=== PATIENT | male | born 1970 | race Two or more races ===

== ENCOUNTER 2023-10-26 06:16 | Observation (INO) | payer SELFPAY ==
[2023-10-26] VITALS (13 sets, daily range): BP systolic 147–192; BP diastolic 90–130; PULSE 69–91; RESP 14–20; TEMP 36.6–37.7; O2SAT 97–100; BMI 30.4
--- NOTE | 2023-10-26 | ECG_ITS ---
Test Reason : sob Blood Pressure : / mmHG Vent. Rate : 072 BPM Atrial Rate : 072 BPM P-R Int : 168 ms QRS Dur : 112 ms QT Int : 442 ms P-R-T Axes : 063 -33 120 degrees QTc Int : 483 ms Normal sinus rhythm Left axis deviation Left ventricular hypertrophy with repolarization abnormality ( Sokolow-Santoyo , [place] product , Romhilt-Resendez ) Prolonged QT Abnormal ECG No previous ECGs available Referred By: Generic ED Physician Electronically Signed By:FAIZAN RODRIGUEZ
--- NOTE | ~2023-10-26 | XR_ITS ---
EXAMINATION: XR CHEST CLINICAL INFORMATION: Shortness of breath COMPARISON: None available. TECHNIQUE: 2 views of the chest were obtained. FINDINGS: Heart and mediastinum within normal limits. Scattered mild increased markings identified right mid/upper lung and hilar bases. No consolidations or effusions. No vascular congestion. Mild degenerative changes. XR/XR chest 2V IMPRESSION: Scattered increased markings, question atelectasis, pneumonia not excluded.
--- NOTE | 2023-10-26 06:43 | ED.GENADULT ---
HPI - General Adult General Chief complaint: General Medical Stated complaint: SoB Time Seen by Provider: 10/26/23 06:41 Source: patient Mode of arrival: ambulatory Limitations: no limitations History of Present Illness HPI narrative: Patient is a 53 year old assigned male at with no reported medical history presenting to the emergency department today with shortness of breath. Patient states that he was asleep when he woke up to feeling short of breath. Patient states that he felt as though he was gasping for air. Patient denies any dizziness, lightheadedness, abdominal pain, nausea, vomiting, fever, chills, blurry vision, double vision, loss of vision, chest pain, back pain, night sweats, pain with urination, increased urinary frequency, increased urinary urgency, blood in his urine or stool, syncope or a near syncopal episode, recent trauma or falls, bowel incontinence, bladder incontinence, bowel retention, bladder retention, or any other complaints at this time. Patient denies any recent drug use. Onset (ago): hour(s) Relieving factors: none Exacerbating factors: none Associated symptoms: shortness of breath Treatments prior to arrival: none Related Data Home Medications Medication Instructions Recorded Confirmed No Known Home Meds 10/26/23 10/26/23 Allergies Allergy/AdvReac Type Severity Reaction Status Date / Time No Known Allergies Allergy Unverified 08/05/20 19:27 [No Known Allergies*] Review of Systems Constitutional: Constitutional: Reports no additional constitutional complaints, Denies chills, Denies fever(s) and Denies night sweats Eyes: Eyes: Reports no additional eye complaints, Denies blurry vision, Denies change in vision, Denies diplopia, Denies eye discharge, Denies loss of vision and Denies eye pain ENT: Denies dizziness Cardiovascular: Cardiovascular: Reports no additional cardiovascular complaints, Denies chest pain, Denies lightheadedness, Denies Loss of Consciousness and Reports dyspnea Respiratory: Respiratory: Reports no additional respiratory complaints and Reports dyspnea Gastrointestinal: Gastrointestinal: Reports no additional gastrointestinal complaints, Denies abdominal pain, Denies melena, Denies hematochezia, Denies change in bowel habits and Denies change in stool character Genitourinary: Genitourinary: Reports no additional male genitourinary complaints, Denies hematuria, Denies oliguria, Denies difficulty urinating, Denies dysuria, Denies urinary frequency, Denies urinary hesitancy, Denies urinary incontinence and Denies urinary urgency Musculoskeletal: Musculoskeletal: Reports no additional musculoskeletal complaints, Denies numbness and Denies tingling Neurologic: Denies dizziness, Denies loss of vision, Denies numbness and Denies tingling Psychiatric: Psychiatric: Reports no additional psychiatric complaints Endocrine: Endocrine: Reports no additional endocrine complaints Hematologic/Lymphatic: Hematologic/Lymphatic: Reports no additional hematologic/lymphatic complaints Allergic/Immunologic: Allergic/Immunologic: Reports no additional allergic/immunologic complaints PMFSH Past Medical History Attestation statement: The following information was validated with the patient. Source: old records reviewed and nursing notes reviewed Medical History (Updated 10/26/23 @ 12:11 by JAMES Tavarez) No pertinent past medical history Surgical History (Updated 10/26/23 @ 10:18 by Jan Morales MD) No pertinent past surgical history Family History Family History (Updated 10/26/23 @ 11:40 by Paresh Reddy MD) Mother Kidney problem Emphysema lung Social History Social History (Updated 10/26/23 @ 10:19 by Jan Morales MD) Alcohol intake: never Patient Tobacco Use Status: Former Tobacco user Quit Date: Quit in the Substance Use Type: Marijuana Advance Directives: No Advance Directives Information Provided: Yes Physical Exam ED Vital Signs: Vital Signs - 24 hr 10/26/23 06:27 10/26/23 06:29 10/26/23 06:33 Temperature 98.0 F 98.0 F Pulse Rate 74 72 Respiratory Rate 15 14 Blood Pressure 182/119 H 182/119 H 184/130 H Pulse Oximetry 100 99 Oxygen Delivery Method Room Air Room Air 10/26/23 07:37 Temperature Pulse Rate 83 Respiratory Rate 19 Blood Pressure 184/114 H Pulse Oximetry 98 Oxygen Delivery Method BMI result Body Mass Index 30.4 Const General: cooperative, no acute distress, alert and awake Nutritional Appearance: well nourished Orientation/consciousness: patient oriented x3 Limitations: no limitations HENMT Head: Yes normal to inspection and Yes atraumatic Ears: hearing grossly normal bilaterally and external ears normal General nose exam: Normal external nose present, no nasal discharge noted and no epistaxis Face and sinus: Yes normal facial exam, No abrasion and No laceration Mouth: Normal oral and palatal mucosa present, no drooling and no muffled voice Eyes General: appearance normal, both eyes and all related structures Periorbital: periorbital findings normal Eyelids: Yes eyelids normal Conjunctivae: conjunctivae normal Pupils: Equal, round and reactive pupils present EOM: EOMs intact bilaterally Neck Neck: Yes normal visual inspection, Yes full ROM and Yes no lymphadenopathy Chest Chest palpation & inspection: normal inspection of the chest Resp Effort & Inspection: normal respiratory effort and able to speak in complete sentences Auscultation: clear to auscultation bilaterally Cardio Rate: regular rate Rhythm: regular rhythm GI Inspection: Yes normal to inspection Neuro General: patient oriented x3 and moves all extremities Cranial nerves: Yes Equal, round and reactive pupils present Cognition (Neuro): normal cognition Motor exam (neuro): 5/5 motor strength present throughout Sensory Exam: Normal double simultaneous stimulation for sensation Coordination: [id number] test normal Extrem General: Yes normal to inspection, Yes full ROM and Yes capillary refill normal Psych Appearance: grossly normal Mental Status: mental status grossly normal Affect: normal affect Attitude: cooperative Thought process: Normal thought process present Thought content: Normal thought content present Insight: Good insight present (Psych) Medications Administered Generic Name Dose Route Start Last Admin Trade Name Freq PRN Reason Stop Dose Admin Enoxaparin Sodium 40 mg 10/26/23 10:15 10/26/23 10:57 Enoxaparin Sodium 40 Mg/0.4 Ml Syringe SUBCUT 40 mg Q24H ARTIS Administration Discontinued Medications Generic Name Dose Route Start Last Admin Trade Name Freq PRN Reason Stop Dose Admin Amlodipine Besylate 10 mg 10/26/23 07:28 10/26/23 07:35 Amlodipine Besylate 10 Mg Tablet PO 10/26/23 07:29 10 mg ONCE ONE Administration Protocol Nitroglycerin 1 inch 10/26/23 10:20 10/26/23 10:49 Nitroglycerin 2 % Oint 1 Gm Packet TRANSDERMA 10/26/23 10:21 1 inch ONCE ONE Administration Medical Decision Making Medical Decision Making [facility] Narrative: Patient is a 53 year old assigned male at with no reported medical history presenting to the emergency department today with shortness of breath. Patient's physical exam showed a hypertensive individual but was otherwise unremarkable. Patient's blood work showed an initially elevated troponin of 195 with a repeat of 181 and a BNP of 179. Patient's urine showed no acute process. Patient's EKG showed evidence of ischemia. Patient's chest x-ray showed scattered increased markings question atelectasis vs. penumonia. Patient's clinical presentation is most consistent with hypertension with possible cardiac ischemia. Patient's clinical presentation is not consistent with sepsis (@0825). I spoke with the educational diagnostician flight control specialist who recommended giving 10mg of Amlodipine and admitting the patient. I spoke to the hospitalist team who agreed to admission. I explained my physical exam findings as well as all test results to the patient. I answered all questions asked by the patient. Patient verbalized agreement and understanding with this treatment plan and admission. Differential Diagnosis Differential Diagnoses: The differential diagnosis associated with the presentation includes NSTEMI STEMI Cardiomyopathy Hypertension Hypertensive urgency Hypertensive emergency Admission/Observation Consideration of admission/observation: Escalation of care including admission/observation considered Patient admitted. Consult Healthcare Provider Management of the patient was discussed with: Lead Java Developer Architect (spoke to the educational diagnostician as noted in the MDM Rationale portion of this note.) Lab Data [facility] Lab Attestation statement: I reviewed the patient's lab results. My interpretation of these results are in the MDM Rationale portion of this note. 10/26/23 06:48 10/26/23 06:48 Labs: Lab Results 10/26/23 10/26/23 10/26/23 Range/Units 06:48 07:12 07:50 WBC 8.6 (4.8-10.8) X10*3/uL RBC 5.67 (4.60-5.80) X10*6/uL Hgb 12.5 L (14.0-18.0) g/dl Hct 40.1 L (42.0-52.0) % MCV 70.7 L (80.0-98.0) fL MCH 22.0 L (27.0-33.0) pg MCHC 31.2 (31.0-36.0) g/dl RDW 16.5 H (11.0-16.0) % Plt Count 204 (160-400) X10*3/uL MPV 10.8 (9.4-12.4) fL Immature Gran % (Auto) 0.4 (0.0-0.4) % Neut % (Auto) 59.2 (45-73) % Lymph % (Auto) 27.9 (20-40) % [place] % (Auto) 7.4 (2-11) % Eos % (Auto) 4.4 H (0-4) % Baso % (Auto) 0.7 (0-2) % Lymph # (Auto) 2.4 (1.2-4.9) X10*3/uL [place] # (Auto) 0.6 (0.1-1.2) X10*3/uL Eos # (Auto) 0.4 (0.0-0.4) X10*3/uL Baso # (Auto) 0.1 (0.0-0.2) X10*3/uL Abs Immat Gran (auto) 0.03 (0.00-0.03) X10*3/uL Absolute Neuts (auto) 5.1 (2.0-8.3) x10*3/uL Absolute Nucleated RBC 0.000 (0.0-0.012) X10*3/uL Nucleated RBC % (auto) 0.0 (0.0-0.2) /100WBC PT 12.9 (11.1-13.3) SEC INR 1.1 (0.9-1.1) APTT 31.5 (26.0-36.4) SEC D-Dimer High Sensitivty 151 NG/ML Sodium 142 (135-145) mmol/L Potassium 3.7 (3.3-5.1) mmol/L Chloride 106 (96-108) mmol/L Carbon Dioxide 28 (22-29) mmol/L Anion Gap 12 (12-20) BUN 20 H (9-16) mg/dL Creatinine 0.89 (0.5-1.4) mg/dL Estim Creat Clear Calc 107.3 Estimated GFR > 60 Random Glucose 107 (60-115) mg/dL Calcium 8.9 (8.4-10.2) mg/dL Magnesium 2.0 (1.6-2.6) mg/dL Total Bilirubin 0.4 (0.0-1.0) mg/dL AST 27 (5-37) U/L ALT 24 (0-40) U/L Alkaline Phosphatase 81 (39-117) U/L Troponin I High Sens 195.0 H* 181.0 H* (<3.5-35.0) ng/L B-Natriuretic Peptide 179 H (<100) pg/mL Total Protein 7.5 (6.5-8.0) g/dL Albumin 4.1 (3.5-5.0) g/dL Urine Color Yellow Urine Appearance Clear Urine pH 7.5 (5.0-9.0) Ur Specific [employer] <= 1.005 (1.005-1.025) Urine Protein Negative (Neg-Trace) mg/dL Urine Glucose (UA) Negative (Negative) mg/dL Urine Ketones Negative (Negative) mg/dL Urine Blood Negative (Negative) Urine Nitrite Negative (Negative) Ur Leukocyte Esterase Negative (Negative) Urine Opiates Screen (Not Detect) Urine Fentanyl Screen (Not Detect) Ur Barbiturates Screen (Not Detect) Ur Phencyclidine Scrn (Not Detect) Ur Amphetamines Screen (Not Detect) U Benzodiazepines Scrn (Not Detect) Urine Cocaine Screen (Not Detect) U Marijuana (THC) Screen (Not Detect) Influenza Type A (PCR) NEGATIVE (Negative) Influenza Type B (PCR) NEGATIVE (Negative) RSV RNA Qual (PCR) NEGATIVE (Negative) SARS-CoV-2 RNA (RT-PCR) NEGATIVE (Negative) 10/26/23 Range/Units 07:52 WBC (4.8-10.8) X10*3/uL RBC (4.60-5.80) X10*6/uL Hgb (14.0-18.0) g/dl Hct (42.0-52.0) % MCV (80.0-98.0) fL MCH (27.0-33.0) pg MCHC (31.0-36.0) g/dl RDW (11.0-16.0) % Plt Count (160-400) X10*3/uL MPV (9.4-12.4) fL Immature Gran % (Auto) (0.0-0.4) % Neut % (Auto) (45-73) % Lymph % (Auto) (20-40) % [place] % (Auto) (2-11) % Eos % (Auto) (0-4) % Baso % (Auto) (0-2) % Lymph # (Auto) (1.2-4.9) X10*3/uL [place] # (Auto) (0.1-1.2) X10*3/uL Eos # (Auto) (0.0-0.4) X10*3/uL Baso # (Auto) (0.0-0.2) X10*3/uL Abs Immat Gran (auto) (0.00-0.03) X10*3/uL Absolute Neuts (auto) (2.0-8.3) x10*3/uL Absolute Nucleated RBC (0.0-0.012) X10*3/uL Nucleated RBC % (auto) (0.0-0.2) /100WBC PT (11.1-13.3) SEC INR (0.9-1.1) APTT (26.0-36.4) SEC D-Dimer High Sensitivty NG/ML Sodium (135-145) mmol/L Potassium (3.3-5.1) mmol/L Chloride (96-108) mmol/L Carbon Dioxide (22-29) mmol/L Anion Gap (12-20) BUN (9-16) mg/dL Creatinine (0.5-1.4) mg/dL Estim Creat Clear Calc Estimated GFR Random Glucose (60-115) mg/dL Calcium (8.4-10.2) mg/dL Magnesium (1.6-2.6) mg/dL Total Bilirubin (0.0-1.0) mg/dL AST (5-37) U/L ALT (0-40) U/L Alkaline Phosphatase (39-117) U/L Troponin I High Sens (<3.5-35.0) ng/L B-Natriuretic Peptide (<100) pg/mL Total Protein (6.5-8.0) g/dL Albumin (3.5-5.0) g/dL Urine Color Urine Appearance Urine pH (5.0-9.0) Ur Specific [employer] (1.005-1.025) Urine Protein (Neg-Trace) mg/dL Urine Glucose (UA) (Negative) mg/dL Urine Ketones (Negative) mg/dL Urine Blood (Negative) Urine Nitrite (Negative) Ur Leukocyte Esterase (Negative) Urine Opiates Screen Not Detected (Not Detect) Urine Fentanyl Screen Not Detected (Not Detect) Ur Barbiturates Screen Not Detected (Not Detect) Ur Phencyclidine Scrn Not Detected (Not Detect) Ur Amphetamines Screen Not Detected (Not Detect) U Benzodiazepines Scrn Not Detected (Not Detect) Urine Cocaine Screen Not Detected (Not Detect) U Marijuana (THC) Screen POSITIVE H (Not Detect) Influenza Type A (PCR) (Negative) Influenza Type B (PCR) (Negative) RSV RNA Qual (PCR) (Negative) SARS-CoV-2 RNA (RT-PCR) (Negative) Independent Interpretation I performed an independent interpretation of an: EKG and Plain X-Ray Interpretation: My interpretation is in agreement with the radiologist's impression of this imaging study. EXAMINATION: XR CHEST CLINICAL INFORMATION: Shortness of breath COMPARISON: None available. TECHNIQUE: 2 views of the chest were obtained. FINDINGS: Heart and mediastinum within normal limits. Scattered mild increased markings identified right mid/upper lung and hilar bases. No consolidations or effusions. No vascular congestion. Mild degenerative changes. XR/XR chest 2V IMPRESSION: Scattered increased markings, question atelectasis, pneumonia not excluded. Dictated By: Guillermina Cordova MD Signed By: Electronically signed by Guillermina Cordova MD 10/26/23 0750 Vent. Rate: 072 BPM Atrial Rate: 072 BPM P-R Int: 168 ms QRS Dur: 112 ms QT Int: 442 ms P-R-T Axes: 063 -33 120 degrees QTc Int: 483 ms Normal sinus rhythm Left axis deviation Left ventricular hypertrophy with repolarization abnormality ( Sokolow-Santoyo , [place] product , Romhilt-Resendez ) Prolonged QT Abnormal ECG No previous ECGs available DD/ 0700 Radiology Impression Discussion of test interpretation with radiology: I have reviewed the radiologist's reading. Critical Care Time Critical Care Time Critical Care Time: Yes Total Critical Care Time: 45 Attestation: I spent 45 minutes of Critical Care Time with this patient. This does not include time spent on separately reported billable procedures. Discharge Plan Discharge Clinical Impression: Hypertensive emergency, NSTEMI (non-ST elevated myocardial infarction) Patient Disposition: Admitted As Inpatient
[2023-10-26 06:55] LABS: MANUAL DIFF FLAG NO
[2023-10-26 06:56] LABS: Basophils Absolute Auto 0.1 X10*3/uL (0.0-0.2); Basophils Percent Auto 0.7 % (0-2); Eosinophils Absolute Auto 0.4 X10*3/uL (0.0-0.4); Eosinophils Percent Auto 4.4 % (0-4); Hematocrit 40.1 % (42.0-52.0); Hemoglobin 12.5 g/dl (14.0-18.0); Imm Gran Abs Auto 0.03 X10*3/uL (0.00-0.03); Imm Gran Pct Auto 0.4 % (0.0-0.4); Lymphocytes Absolute Auto 2.4 X10*3/uL (1.2-4.9); Lymphocytes Percent Auto 27.9 % (20-40); Mean Corpuscular HGB Conc 31.2 g/dl (31.0-36.0); Mean Corpuscular Volume 70.7 fL (80.0-98.0); Mean Platelet Volume 10.8 fL (9.4-12.4); Monocytes Absolute Auto 0.6 X10*3/uL (0.1-1.2); Monocytes Percent Auto 7.4 % (2-11); Neutrophils Absolute Auto 5.1 x10*3/uL (2.0-8.3); Neutrophils Percent Auto 59.2 % (45-73); Platelet Count 204 X10*3/uL (160-400); Red Blood Count 5.67 X10*6/uL (4.60-5.80); Red Cell Distribution Width 16.5 % (11.0-16.0); White Blood Count 8.6 X10*3/uL (4.8-10.8)
--- NOTE | 2023-10-26 07:00 | CA_ITS ---
Transthoracic Echocardiogram Patient (Last, First, Middle): Rj Clifford, Gender: Male Date of : 1970 Age: 53 Procedure Date: 10/26/2023 Procedure Type: Transthoracic Echocardiogram Location: ER Height: 172. cm Weight: 90.72 kg BSA: 2.04 m2 Heart Rate: 75 bpm BP: 160 / 100 mmHg Slitting And Shipping Supervisor: CAMILLE Referring MD: Jan Morales MD Symptoms: shortness of breath, uncontrolled HTN, LVH on EKG Study Quality: Good ECG Rhythm: Sinus Conclusions: - The left ventricular systolic function is moderately decreased. The visually estimated ejection fraction is between 35-40%. - Moderately increased right ventricular cavity size. - The left atrium is moderately dilated. - No obvious valvular pathology seen on this study. Findings Left Ventricle Moderately increased left ventricular cavity size. There is mildly increased left ventricular wall thickness. The left ventricular systolic function is moderately decreased. The visually estimated ejection fraction is between 35 40%. Evidence suggests grade I (mild) diastolic dysfunction. Right Ventricle Moderately increased right ventricular cavity size. There is normal right ventricular systolic function. Atria The left atrium is moderately dilated. The right atrium is mildly dilated. Aortic Valve There is a normal trileaflet aortic valve. There is no aortic valve stenosis. There is no aortic valve regurgitation. Mitral Valve The mitral valve appears normal. There is no mitral valve regurgitation. There is no mitral valve stenosis. Pulmonic Valve The pulmonic valve is likely normal. Tricuspid Valve Normal tricuspid valve structure. There is trace tricuspid valve regurgitation. There is no evidence of pulmonary hypertension. Great Vessels The asc aorta is normal in size. Venous The inferior vena cava is normal in size and collapses greater than 50% with inspiration. Pericardium/Pleural There is no evidence of pericardial effusion. Prior Study Comparison No prior study available for comparison. Recommendations, Care & Conclusions No obvious valvular pathology seen on this study. Measurements 2D Linear Measurements IVSd: 1.10 0.6-0.9/0.6-1.0 cm LVIDd: 6.36 3.9-5.3/4.2-5.9 cm LVIDd Index: 3.12 2.4-3.2/2.2-3.1 cm/m2 LVIDs: 4.89 2.0-3.6 cm LVPWd: 1.45 0.7-1.1 cm LA Diam: 4.00 2.7-3.8/3.0-4.0 cm LAIDs Index: 1.96 1.5-2.3 cm/m2 LV Mass: 468.09 67-162/88-224 g LV Mass Index: 229.46 43-95/49-115 g/m2 LVOT Diam: 2.00 3.0+(-)1.3 cm 2D Systolic Function EF 4C: 43.50 >55% EF 2C: 47.80 >55% EF BiP: 45.20 >55% Mitral Valve MV Pk E: 0.89 MV PK A: 0.72 MV Decel Time: 185.00 E/A: 1.20 E'Lateral: 6.74 E'Medial: 4.68 E/E' Med: 19.00 E/E' Lat: 13.20 PHT: 54.00 MVA PHT: 4.07 Decel [place]: 4.80 Aortic Valve AoV Pk Akhil: 1.54 AoV Mn Akhil: 1.16 AoV VTI: 0.32 AoV Pk Grad: 9.00 Aov Mn Grad: 6.00 YUKO Cont.VTI: 1.93 LVOT LVOT Pk Akhil: 1.01 LVOT Mn Akhil: 0.72 LVOT VTI: 0.19 LVOT Pk Grad: 4.00 LVOT Mn Grad: 2.00 LVOT Diam: 2.00 LVOT Area: 3.14 Diastolic Function MV Pk E: 0.89 MV Pk A: 0.72 E/A: 1.20 E'Medial: 4.68 E/E' Med: 19.00 E' Laterial: 6.74 E/E' Lat: 13.20 Right Ventricle TAPSE (mm): 27.70 TVS' Akhil: 13.20 Tricuspid Valve RA Press: 8.00 Great Vessels Aorta Sinus of Valsalva: 4.20 2.0-3.5 cm Ao Asc: 3.80 2.1-3.4 cm Pulmonary Valve PV Pk Akhil: 1.00 Peak PV Grad: 4.00 Updated in Other Vendor System with Status of Final Paresh Reddy MD electronically signed on 10/26/2023 3:22:08 PM with status of Final
[2023-10-26 07:04] LABS: INTERNATIONAL NORM RATIO 1.1 (0.9-1.1); Prothrombin Time 12.9 SEC (11.1-13.3)
[2023-10-26 07:07] LABS: Partial Thromboplastin Time 31.5 SEC (26.0-36.4)
[2023-10-26 07:09] LABS: Alanine Aminotransferase 24 U/L (0-40); Albumin Level 4.1 g/dL (3.5-5.0); Alkaline Phosphatase 81 U/L (39-117); Anion Gap 12 (12-20); Aspartate Amino Transferase 27 U/L (5-37); Bilirubin Total 0.4 mg/dL (0.0-1.0); Blood Urea Nitrogen 20 mg/dL (9-16); Calcium 8.9 mg/dL (8.4-10.2); Carbon Dioxide 28 mmol/L (22-29); Chloride 106 mmol/L (96-108); Creatinine Clr Calc Pharmacy 107.3; Estimated Glomerular Filt Rate > 60; Glucose Random 107 mg/dL (60-115); Potassium 3.7 mmol/L (3.3-5.1); Sodium 142 mmol/L (135-145); Total Protein 7.5 g/dL (6.5-8.0)
[2023-10-26 07:20] LABS: Appearance Urine Clear; Color Urine Yellow; Glucose Urine UA Negative (Negative); Leukocyte Esterase Urine Negative (Negative); Nitrite Urine Negative (Negative); PH 7.5 (5.0-9.0); Specific Gravity - Urine <= 1.005 (1.005-1.025); Urine Blood Negative (Negative); Urine Ketones Negative (Negative); Urine Protein Negative (Neg-Trace)
[2023-10-26 07:32] LABS: Influenza A PCR NEGATIVE (Negative); Influenza B PCR NEGATIVE (Negative); Resp Syncy Virus RNA Qual PCR NEGATIVE (Negative); SARS COV2 PCR INHOUSE NEGATIVE (Negative)
[2023-10-26] MEDS: amLODIPine Besylate 10 MG TABLET PO (07:35)
[2023-10-26 08:02] LABS: D Dimer High Sensitivity 151 NG/ML
[2023-10-26 08:07] LABS: Amphetamine Screen Urine Not Detected (Not Detect); Barbiturates, Urine Not Detected (Not Detect); Benzodiazepines Screen Urine Not Detected (Not Detect); Cannabinoid Screen Urine POSITIVE (Not Detect); Cocaine Screen Urine Not Detected (Not Detect); Fentanyl, urine Not Detected (Not Detect); Opiate Screen Urine Not Detected (Not Detect); Phencyclidine Screen Urine Not Detected (Not Detect)
[2023-10-26 09:03] LABS: B Type Natriuretic Peptide 179 pg/mL (<100)
--- NOTE | 2023-10-26 09:22 | PHA.MEDREC ---
Pharmacy Consult ? Medication Reconciliation Pharmacy has completed the medication reconciliation. Patient reports no prescription or OTC medications
--- NOTE | 2023-10-26 10:04 | P.HPHOSP_ITS ---
History of Present Illness Date of Service: 10/26/23 Chief Complaint: shortness of breath This is a 53 year old male without any known PMH who presents to the ED with sudden on set of shortness of breath which woke him from sleep. The patient reports he was in his usual state of health when he returned home from work round 1AM on the day of admission. He states he went to bed and was suddenly awakened due to SOB. He denied any chest pain, HILL, blurred vision at this time. He reported anxiety and states he attempted to walk around / took his dog out for a walk, but the symptoms did not subside and hence he presented here. He denies any prior cardiac symptoms. No exertional dyspnea. No orthopnea, edema or weight gain. He denies chest pain. He denies any prior such episode. He does report that he has not seen a physician for over a decade, however, does state that he was told of boderline BP at that time. He has a strong family history of HTN in his brother, mother and father. Denies CAD history in the family. In the ED, the patients BP was elevated to over 180/110; His EKG showed LVF, his HS trops are elevated but flat (195 -> 181), BNP 179, CXR without over pulmonary edema; His case was d/w the on-call assistant program manager by the ED team and he will now be admitted for further work up and treatment. Review of Systems 2 Review of Systems: Negative except HPI/interval history. [facility] Medical History (Updated 11/04/23 @ 00:01 by Sol Cagle) NSTEMI (non-ST elevated myocardial infarction) No pertinent past medical history Family History Mother Kidney problem Emphysema lung Pertinent family history: HTN in mother, father brother Mother secondary to ESRD Surgical History No pertinent past surgical history Social History Household Members: Family and Children Household Members Other:: 1 daughter, Housing: Apartment Do you presently have visiting nurse or other home services: No Alcohol intake: never Patient Tobacco Use Status: Former Tobacco user Quit Date: 25 years ago Tobacco use type: Cigarette Cigarette Packs Per Day: 2 Cigarettes Per Day: 40.0 Substance Use Type: Marijuana service: No Meds Allergies Allergy/AdvReac Type Severity Reaction Status Date / Time No Known Allergies Allergy Verified 10/27/23 05:50 [No Known Allergies*] Physical Exam 2 Vital Signs and Narrative: Vital Signs: Last Vital Signs Temp 98.0 F 10/26/23 06:29 Pulse 83 10/26/23 07:37 Resp 19 10/26/23 07:37 BP 184/114 H 10/26/23 07:37 Pulse Ox 98 10/26/23 07:37 O2 Del Method Room Air 10/26/23 06:29 BMI result Body Mass Index 30.4 Const: Other: Constitutional - Awake and Alert, No apparent distress Eyes - PERRLA, EOMI Cardiovascular - S1S2, RRR, No edema Respiratory - Normal lung expansion, Normal respiratory effort, No respiratory distress, CTA bilaterally Gastrointestinal - NT / ND; +BS; No rebound or guarding - No CVA tenderness Extremities - no calf tenderness bilaterally, no swelling Musculoskeletal - Normal inspection, normal ROM Skin - Warm/Dry Neurological - Alert & oriented x3, No focal deficit Psychological - Appropriate affect Results Labs 10/26/23 06:48 10/27/23 05:58 Labs: Laboratory Results - last 24 hr 10/26/23 10/26/23 10/26/23 06:48 07:12 07:52 MCV 70.7 L MCH 22.0 L MCHC 31.2 RDW 16.5 H Plt Count 204 MPV 10.8 Immature Gran % (Auto) 0.4 Neut % (Auto) 59.2 Lymph % (Auto) 27.9 [place] % (Auto) 7.4 Eos % (Auto) 4.4 H Baso % (Auto) 0.7 Lymph # (Auto) 2.4 [place] # (Auto) 0.6 Eos # (Auto) 0.4 Baso # (Auto) 0.1 Abs Immat Gran (auto) 0.03 Absolute Neuts (auto) 5.1 Absolute Nucleated RBC 0.000 Nucleated RBC % (auto) 0.0 PT 12.9 INR 1.1 APTT 31.5 D-Dimer High Sensitivty 151 Anion Gap 12 Estim Creat Clear Calc 107.3 Estimated GFR > 60 Random Glucose 107 Calcium 8.9 Magnesium 2.0 Total Bilirubin 0.4 AST 27 ALT 24 Alkaline Phosphatase 81 B-Natriuretic Peptide 179 H Total Protein 7.5 Albumin 4.1 Urine Color Yellow Urine Appearance Clear Urine pH 7.5 Ur Specific [place] <= 1.005 Urine Protein Negative Urine Glucose (UA) Negative Urine Ketones Negative Urine Blood Negative Urine Nitrite Negative Ur Leukocyte Esterase Negative Urine Opiates Screen Not Detected Urine Fentanyl Screen Not Detected Ur Barbiturates Screen Not Detected Ur Phencyclidine Scrn Not Detected Ur Amphetamines Screen Not Detected U Benzodiazepines Scrn Not Detected Urine Cocaine Screen Not Detected U Marijuana (THC) Screen POSITIVE H Influenza Type A (PCR) NEGATIVE Influenza Type B (PCR) NEGATIVE RSV RNA Qual (PCR) NEGATIVE SARS-CoV-2 RNA (RT-PCR) NEGATIVE Imaging Radiologist's Impressions: Impressions Chest X-Ray 10/26/23 07:27 IMPRESSION: Scattered increased markings, question atelectasis, pneumonia not excluded. Assessment and Plan (1) Hypertensive emergency: Status: Acute Plan 53 yo M without any PMH who presents to the ED with sudden on set shortness of breath. He is found to have elevated blood pressures and EKG showing LVH. He will be admitted for furhter work up. 1. Sudden onset shortness of breath Per patient, improving Suspect related to uncontrolled HTN 2. Uncontrolled HTN No previous diagnosis, but BPs in the 180-200/100-120 range Given a dose of norvasc; will place nitropaste anticipate he will likely need multiple meds as I suspected HTN is long- standing; will slowly titrate 3. Elevated trop/Elevated BNP/LVH on EKG question CHF -- clinically he does not appear to be in CHF nor does he endorse correction symptoms will consult cardiology and check 2d echo Full Code DVT pptx, Lovenox Quality Stroke Does the patient have a stroke diagnosis?: No VTE Prior VTE?: No VTE Risk Level:: Medical - moderate - high VTE Device Contraindication: N/A - Device Ordered VTE Drug Contraindication: N/A - Med Ordered
[2023-10-26] MEDS: Nitroglycerin 2 % Oint 1 GM Packet 1 INCH TRANSDERMA (10:49)
[2023-10-26] MEDS: Enoxaparin Sodium 40 MG/0.4 ML SYRINGE SUBCUT (10:57)
--- NOTE | 2023-10-26 11:34 | PM.CNCAR ---
History of Present Illness History of Present Illness Date of Service: 10/26/23 Chief complaint: Shortness of breath Narrative: This is a cardiology consultation regarding uncontrolled blood pressure and elevation troponins. He apparently returned home after work around 01:00. He went to bed and then woke up suddenly to shortness of breath. No clear chest pains. He thought was all anxiety but then symptoms did not get better and hence he presented to the ER. Patient states he has not seen a doctor in many years. Apparently, told to have high blood pressure at some point but he never took any medications. Otherwise, not known to have any coronary disease myocardial infarction or cardiomyopathy. He denies any clear-cut anginal-type symptoms. Blood pressure is quite high since arrival. Troponins are also elevated. However, he seems quite comfortable. Review of Systems Review of Systems: Yes all other systems are reviewed and are negative Constitutional: Constitutional: Reports as per HPI and Reports no additional constitutional complaints Eyes: Eyes: Reports as per HPI and Denies no additional eye complaints ENT: Denies system reviewed and no additional complaints, except as documented and Reports as per HPI Cardiovascular: Cardiovascular: Reports as per HPI, Reports no additional cardiovascular complaints, Denies acrocyanosis, Denies cool extremities, Denies chest pain, Denies leg edema, Denies lightheadedness, Denies palpitations and Reports dyspnea Respiratory: Respiratory: Reports as per HPI, Denies no additional respiratory complaints and Reports dyspnea Gastrointestinal: Gastrointestinal: Reports as per HPI and Denies no additional gastrointestinal complaints Genitourinary: Genitourinary: Reports no additional male genitourinary complaints and Reports as per HPI Musculoskeletal: Musculoskeletal: Reports no additional musculoskeletal complaints and Reports as per HPI Integumentary/Breasts: Skin/Breast: Reports system reviewed and no additional complaints, except as docu Neurologic: Reports system reviewed and no additional complaints, except as documented and Reports as per HPI Psychiatric: Psychiatric: Reports no additional psychiatric complaints and Reports as per HPI Endocrine: Endocrine: Reports no additional endocrine complaints, Reports as per HPI and Denies palpitations Hematologic/Lymphatic: Hematologic/Lymphatic: Reports no additional hematologic/lymphatic complaints and Reports as per HPI Allergic/Immunologic: Allergic/Immunologic: Reports no additional allergic/immunologic complaints and Reports as per HPI [facility] Past Medical History Medical History (Updated 10/26/23 @ 11:41 by Paresh Reddy MD) No pertinent past medical history Family History Family History (Updated 10/26/23 @ 11:40 by Paresh Reddy MD) Mother Kidney problem Emphysema lung Surgical History Surgical History (Updated 10/26/23 @ 10:18 by Jan Morales MD) No pertinent past surgical history Social History Social History (Updated 10/26/23 @ 10:19 by Jan Morales MD) Alcohol intake: never Patient Tobacco Use Status: Former Tobacco user Quit Date: Quit in the Substance Use Type: Marijuana Advance Directives: No Advance Directives Information Provided: Yes Meds Allergies Allergy/AdvReac Type Severity Reaction Status Date / Time No Known Allergies Allergy Unverified 08/05/20 19:27 [No Known Allergies*] Active Medications: Current Medications Acetaminophen (Acetaminophen 325 Mg Tablet) 650 mg PO Q6H PRN PRN Reason: Pain, Mild (Pain Scale 1-3) Amlodipine Besylate (Amlodipine Besylate 10 Mg Tablet) 10 mg PO DAILY ARTIS; Protocol Enoxaparin Sodium (Enoxaparin Sodium 40 Mg/0.4 Ml Syringe) 40 mg SUBCUT Q24H ARTIS Last Admin: 10/26/23 10:57 Dose: 40 mg Ondansetron HCl (Ondansetron Hcl 4 Mg/2 Ml Vial) 4 mg IVPUSH Q8H PRN PRN Reason: Nausea and Vomiting Sodium Chloride (0.9 % Sodium Chloride Flush 3 Ml Syringe) 3 ml IVFLUSH QSHIFT [facility] Home Medications Medication Instructions Recorded Confirmed Last Taken Type No Known Home Meds 10/26/23 10/26/23 Unknown History Physical Exam Vital Signs: Vital Signs: Last Vital Signs Temp 98.0 F 10/26/23 10:25 Pulse 70 10/26/23 10:25 Resp 18 10/26/23 10:25 BP 190/113 H 10/26/23 10:25 Pulse Ox 98 10/26/23 10:25 O2 Del Method Room Air 10/26/23 10:25 BMI result Body Mass Index 30.4 Const: General: comfortable and no acute distress Orientation/consciousness: patient oriented x3 HEENT: Other: Unremarkable Head: Yes normal to inspection Neck: Neck: Yes normal visual inspection Chest: Chest palpation & inspection: normal inspection of the chest Resp: Auscultation: clear to auscultation bilaterally Cardio: Palpation: normal PMI Heart sounds: S1 normal heart sound present, S2 normal heart sound present, no gallops, no murmurs and no rubs GI: Palpation (GI): Soft to palpation Back/Spine/Pelvis: Other: unremarkable Skin: General skin exam: no rashes or lesions noted Neuro: General: patient oriented x3 Extrem: General: Yes normal to inspection Psych: Mental Status: mental status grossly normal Objective Labs and Meds 10/26/23 06:48 10/26/23 06:48 Lab results: Laboratory Results - last 24 hr 10/26/23 10/26/23 10/26/23 06:48 07:12 07:50 WBC 8.6 RBC 5.67 Hgb 12.5 L Hct 40.1 L MCV 70.7 L MCH 22.0 L MCHC 31.2 RDW 16.5 H Plt Count 204 MPV 10.8 Immature Gran % (Auto) 0.4 Neut % (Auto) 59.2 Lymph % (Auto) 27.9 [place] % (Auto) 7.4 Eos % (Auto) 4.4 H Baso % (Auto) 0.7 Lymph # (Auto) 2.4 [place] # (Auto) 0.6 Eos # (Auto) 0.4 Baso # (Auto) 0.1 Abs Immat Gran (auto) 0.03 Absolute Neuts (auto) 5.1 Absolute Nucleated RBC 0.000 Nucleated RBC % (auto) 0.0 PT 12.9 INR 1.1 APTT 31.5 D-Dimer High Sensitivty 151 Sodium 142 Potassium 3.7 Chloride 106 Carbon Dioxide 28 Anion Gap 12 BUN 20 H Creatinine 0.89 Estim Creat Clear Calc 107.3 Estimated GFR > 60 Random Glucose 107 Calcium 8.9 Magnesium 2.0 Total Bilirubin 0.4 AST 27 ALT 24 Alkaline Phosphatase 81 Troponin I High Sens 195.0 H* 181.0 H* B-Natriuretic Peptide 179 H Total Protein 7.5 Albumin 4.1 Urine Color Yellow Urine Appearance Clear Urine pH 7.5 Ur Specific [place] <= 1.005 Urine Protein Negative Urine Glucose (UA) Negative Urine Ketones Negative Urine Blood Negative Urine Nitrite Negative Ur Leukocyte Esterase Negative Urine Opiates Screen Urine Fentanyl Screen Ur Barbiturates Screen Ur Phencyclidine Scrn Ur Amphetamines Screen U Benzodiazepines Scrn Urine Cocaine Screen U Marijuana (THC) Screen Influenza Type A (PCR) NEGATIVE Influenza Type B (PCR) NEGATIVE RSV RNA Qual (PCR) NEGATIVE SARS-CoV-2 RNA (RT-PCR) NEGATIVE 10/26/23 07:52 WBC RBC Hgb Hct MCV MCH MCHC RDW Plt Count MPV Immature Gran % (Auto) Neut % (Auto) Lymph % (Auto) [place] % (Auto) Eos % (Auto) Baso % (Auto) Lymph # (Auto) [place] # (Auto) Eos # (Auto) Baso # (Auto) Abs Immat Gran (auto) Absolute Neuts (auto) Absolute Nucleated RBC Nucleated RBC % (auto) PT INR APTT D-Dimer High Sensitivty Sodium Potassium Chloride Carbon Dioxide Anion Gap BUN Creatinine Estim Creat Clear Calc Estimated GFR Random Glucose Calcium Magnesium Total Bilirubin AST ALT Alkaline Phosphatase Troponin I High Sens B-Natriuretic Peptide Total Protein Albumin Urine Color Urine Appearance Urine pH Ur Specific [place] Urine Protein Urine Glucose (UA) Urine Ketones Urine Blood Urine Nitrite Ur Leukocyte Esterase Urine Opiates Screen Not Detected Urine Fentanyl Screen Not Detected Ur Barbiturates Screen Not Detected Ur Phencyclidine Scrn Not Detected Ur Amphetamines Screen Not Detected U Benzodiazepines Scrn Not Detected Urine Cocaine Screen Not Detected U Marijuana (THC) Screen POSITIVE H Influenza Type A (PCR) Influenza Type B (PCR) RSV RNA Qual (PCR) SARS-CoV-2 RNA (RT-PCR) ECG Interpretation: EKG with sinus rhythm at 72/Min; left ventricular hypertrophy with strain pattern. No previous studies for comparison. Imaging Radiologist's impression: Impressions Chest X-Ray 10/26/23 07:27 IMPRESSION: Scattered increased markings, question atelectasis, pneumonia not excluded. Assessment and Plan (1) Hypertensive emergency: Status: Acute Blood pressure still very high. He got amlodipine 10 mg daily. Can give him lisinopril 10 mg daily as well as carvedilol 12.5 mg b.i.d.. Obtain echocardiogram. (2) NSTEMI (non-ST elevated myocardial infarction): Status: Acute Demand related troponin from very high blood pressures. Will review wall motion on echocardiogram. Otherwise do not believe it is a type 1 event. He does not have any chest pain. Can start him on some aspirin. Plan Discussed with hospitalist. Procedures Date of Service Date of Service: 10/26/23
[2023-10-26] MEDS: lisinopriL 10 MG TABLET PO (12:04)
[2023-10-26] MEDS: carvediloL 12.5 MG TABLET PO ×2 (12:04→20:50)
[2023-10-26] MEDS: 0.9 % Sodium Chloride Flush 3 ML SYRINGE IVFLUSH (16:12)
--- NOTE | 2023-10-26 17:56 | PC.NURSE ---
pt states he feels good and wants to leave, I advised him not to and discussed risks, still wants to leave AMA, Dr Morales contacted and has left for the day. he forwarded to Dr Brantley and Dr Brantley aware
--- NOTE | 2023-10-26 18:07 | PC.NURSE ---
Dr ramos to bedside and pt agreeable to staying, sr on monitor, family at bedside, skin wpd, no physical complaints
--- NOTE | 2023-10-26 20:42 | PC.NURSE ---
pt axox4 ambulatory with steady gait to bathroom. pt denies cp/sob/n/v/d at this time. nsr on monitor 76 bpm. sats 98% on RA. resp even and unlabored. awaiting bed assignment aware of plan of care. denies questions/concerns at this time. call loredo within reach.
[2023-10-27 03:29] VITALS: BP 154/95; PULSE 77; RESP 20; TEMP 37.1; O2SAT 95
[2023-10-27 06:19] VITALS: BMI 29.0
[2023-10-27 07:01] LABS: Anion Gap 13 (12-20); Blood Urea Nitrogen 15 mg/dL (9-16); Carbon Dioxide 24 mmol/L (22-29); Chloride 109 mmol/L (96-108); Estimated Glomerular Filt Rate > 60; Glucose Random 109 mg/dL (60-115); Potassium 3.5 mmol/L (3.3-5.1); Sodium 142 mmol/L (135-145)
[2023-10-27 07:38] VITALS: BP 144/85; PULSE 72; RESP 20; TEMP 36.8; O2SAT 96
[2023-10-27] MEDS: Aspirin 81 MG TAB.CHEW PO (08:42)
[2023-10-27] MEDS: amLODIPine Besylate 10 MG TABLET PO (08:42)
[2023-10-27] MEDS: lisinopriL 10 MG TABLET PO (08:43)
[2023-10-27] MEDS: carvediloL 12.5 MG TABLET PO (08:43)
[2023-10-27] MEDS: 0.9 % Sodium Chloride Flush 3 ML SYRINGE IVFLUSH (08:43)
--- NOTE | 2023-10-27 09:32 | PM.PNCARD ---
Subjective Subjective Date of Service: 10/27/23 Interval history: Patient seen in follow-up. He states that he is feeling fine. No new cardiac symptoms. Review of Systems Review of Systems Yes all other systems are reviewed and are negative Constitutional: Reports as per HPI and Reports no additional constitutional complaints Eyes: Reports as per HPI and Denies no additional eye complaints Denies system reviewed and no additional complaints, except as documented and Reports as per HPI Cardiovascular: Reports as per HPI, Reports no additional cardiovascular complaints, Denies acrocyanosis, Denies cool extremities, Denies chest pain, Denies leg edema, Denies lightheadedness, Denies palpitations and Denies dyspnea Respiratory: Reports as per HPI, Denies no additional respiratory complaints and Denies dyspnea Gastrointestinal: Reports as per HPI and Denies no additional gastrointestinal complaints Genitourinary: Reports no additional male genitourinary complaints and Reports as per HPI Musculoskeletal: Reports no additional musculoskeletal complaints and Reports as per HPI Skin/Breast: Reports system reviewed and no additional complaints, except as docu Reports system reviewed and no additional complaints, except as documented and Reports as per HPI Psychiatric: Reports no additional psychiatric complaints and Reports as per HPI Endocrine: Reports no additional endocrine complaints, Reports as per HPI and Denies palpitations Hematologic/Lymphatic: Reports no additional hematologic/lymphatic complaints and Reports as per HPI Allergic/Immunologic: Reports no additional allergic/immunologic complaints and Reports as per HPI Physical Exam Vital Signs: Last Vital Signs Temp 98.3 F 10/27/23 07:38 Pulse 72 10/27/23 07:38 Resp 20 10/27/23 07:38 BP 144/85 H 10/27/23 07:38 Pulse Ox 96 10/27/23 07:38 O2 Del Method Room Air 10/27/23 07:38 BMI result Body Mass Index 29.0 Const General: comfortable and no acute distress Orientation/consciousness: patient oriented x3 HEENT Other: Unremarkable Head: Yes normal to inspection Neck Neck: Yes normal visual inspection Chest Chest palpation & inspection: normal inspection of the chest Resp Auscultation: clear to auscultation bilaterally Cardio Palpation: normal PMI Heart sounds: S1 normal heart sound present, S2 normal heart sound present, no gallops, no murmurs and no rubs GI Palpation (GI): Soft to palpation Back/Spine/Pelvis Other: unremarkable Skin General skin exam: no rashes or lesions noted Neuro General: patient oriented x3 Extrem General: Yes normal to inspection Psych Mental Status: mental status grossly normal Objective Labs and Meds 10/26/23 06:48 10/27/23 05:58 Lab results: Laboratory Results - last 24 hr 10/27/23 05:58 Hold Purple Top SEE NOTE Sodium 142 Potassium 3.5 Chloride 109 H Carbon Dioxide 24 Anion Gap 13 BUN 15 Creatinine 0.89 Estim Creat Clear Calc 105.0 Estimated GFR > 60 Random Glucose 109 Calcium 9.0 Progress Note: A&P Assessment and plan (1) Hypertensive emergency: Status: Acute Assessment and Plan: Blood pressure is improved. Currently on combination of carvedilol, lisinopril, amlodipine. Most recent blood pressure is 144/85 mm Hg. Continue these meds as outpatient. Kidney function a few days. (2) NSTEMI (non-ST elevated myocardial infarction): Status: Acute Assessment and Plan: Demand related troponin from very high blood pressures. Do not believe it is a plaque rupture. He does not have any chest pain. Continue aspirin. (3) Cardiomyopathy: Status: Acute Assessment and Plan: Echocardiogram with LVEF of 35-40%. Suspect it is all hypertensive cardiomyopathy. Less likely CAD but he will need evaluation for the same as well. Will follow as an outpatient. Plan Discussed with hospitalist. Time Spent With Patient Time: Total time managing care of this patient today ____ minutes. Procedures Date of Service Date of Service: 10/27/23
[2023-10-27 10:58] VITALS: BP 160/96; PULSE 63; RESP 16; TEMP 37.3; O2SAT 99
--- NOTE | 2023-10-27 11:19 | MHC.CM.PN ---
PEDRO 10/27. Pt lives at home with his and daughter, is self-care. Goal is to return home self-care, pts will transport him home. No HCP, pt declined. No PCP, local list given to pt.
--- NOTE | 2023-10-27 11:25 | PM.DS ---
DS: Providers Provider Date of Service: 10/27/23 Date of admission: 10/26/23 10:02 Date of discharge: 10/27/23 Primary care physician: Unknown Physician Consults: 10/26/23 10:03 Consult to Cardiology Routine Consulting Provider: [facility] Reason for consultation: hypertensive urgency, suspected undiagonsed CHF DS: Diagnosis Discharge Diagnosis (1) Hypertensive emergency: Status: Acute (2) NSTEMI (non-ST elevated myocardial infarction): Status: Acute (3) Cardiomyopathy: Status: Acute (4) HFrEF (heart failure with reduced ejection fraction): Status: Acute DS: Summary Hospital Course Hospital Course: From the history and physical by the admitting hospitalist, Jan Morales, 10/26/23: This is a 53 year old male without any known PMH who presents to the ED with sudden on set of shortness of breath which woke him from sleep. The patient reports he was in his usual state of health when he returned home from work round 1AM on the day of admission. He states he went to bed and was suddenly awakened due to SOB. He denied any chest pain, HILL, blurred vision at this time. He reported anxiety and states he attempted to walk around / took his dog out for a walk, but the symptoms did not subside and hence he presented here. He denies any prior cardiac symptoms. No exertional dyspnea. No orthopnea, edema or weight gain. He denies chest pain. He denies any prior such episode. He does report that he has not seen a physician for over a decade, however, does state that he was [facility] at that time. He has a strong family history of HTN in his brother, mother and father. Denies CAD history in the family. In the ED, the patients BP was elevated to over 180/110; His EKG showed LVF, his HS trops are elevated but flat (195 -> 181), BNP 179, CXR without over pulmonary edema; His case was d/w the on-call boat officer by the ED team and he will now be admitted for further work up and treatment. He was admitted to the telemetry unit. Hypertension was controlled with a combination of carvedilol, lisinopril, and amlodipine. He was also started on aspirin. Troponin elevation was from hypertensive urgency. He did not have any chest pain. Echocardiogram showed reduced LVEF of 35-40%, thought to be due to hypertensive cardiomyopathy. His dyspnea resolved and he was discharged home with instructions to repeat BMP in 1 week and to follow up with Cardiology in 2 weeks for ischemic testing. He will need to establish primary care as soon as possible. Time Attestation Discharge coordination time: Greater than 30 minutes Quality: Safe Use of Opioids Does Pt have an Active Cancer Diagnosis on the Problem List?: No Quality: Stroke Does the patient have a stroke diagnosis?: No Physical Exam Vital Signs: Vital Signs: Last Vital Signs Temp 99.1 F 10/27/23 10:58 Pulse 63 10/27/23 10:58 Resp 16 10/27/23 10:58 BP 160/96 H 10/27/23 10:58 Pulse Ox 99 10/27/23 10:58 O2 Del Method Room Air 10/27/23 10:58 BMI result Body Mass Index 29.0 Gen: in no acute distress HEENT: sclera anicteric, moist mucus membranes Neck: supple Lungs: clear to auscultation bilaterally Heart: regular rate and rhythm, no murmurs Abd: soft, non-tender, non-distended Ext: no edema Skin: warm/well-perfused Neuro: alert and oriented x3, no focal findings Psych: appropriate affect DS: Data Data Completed and Pending Completed studies during hospitalization [Text1]: Laboratory Results WBC 8.6 X10*3/uL (4.8-10.8) 10/26/23 06:48 RBC 5.67 X10*6/uL (4.60-5.80) 10/26/23 06:48 Hgb 12.5 g/dl (14.0-18.0) L 10/26/23 06:48 Hct 40.1 % (42.0-52.0) L 10/26/23 06:48 MCV 70.7 fL (80.0-98.0) L 10/26/23 06:48 MCH 22.0 pg (27.0-33.0) L 10/26/23 06:48 MCHC 31.2 g/dl (31.0-36.0) 10/26/23 06:48 RDW 16.5 % (11.0-16.0) H 10/26/23 06:48 Plt Count 204 X10*3/uL (160-400) 10/26/23 06:48 MPV 10.8 fL (9.4-12.4) 10/26/23 06:48 Immature Gran % (Auto) 0.4 % (0.0-0.4) 10/26/23 06:48 Neut % (Auto) 59.2 % (45-73) 10/26/23 06:48 Lymph % (Auto) 27.9 % (20-40) 10/26/23 06:48 [place] % (Auto) 7.4 % (2-11) 10/26/23 06:48 Eos % (Auto) 4.4 % (0-4) H 10/26/23 06:48 Baso % (Auto) 0.7 % (0-2) 10/26/23 06:48 Lymph # (Auto) 2.4 X10*3/uL (1.2-4.9) 10/26/23 06:48 [place] # (Auto) 0.6 X10*3/uL (0.1-1.2) 10/26/23 06:48 Eos # (Auto) 0.4 X10*3/uL (0.0-0.4) 10/26/23 06:48 Baso # (Auto) 0.1 X10*3/uL (0.0-0.2) 10/26/23 06:48 Abs Immat Gran (auto) 0.03 X10*3/uL (0.00-0.03) 10/26/23 06:48 Absolute Neuts (auto) 5.1 x10*3/uL (2.0-8.3) 10/26/23 06:48 Absolute Nucleated RBC 0.000 X10*3/uL (0.0-0.012) 10/26/23 06:48 Nucleated RBC % (auto) 0.0 /100WBC (0.0-0.2) 10/26/23 06:48 Hold Purple Top SEE NOTE 10/27/23 05:58 PT 12.9 SEC (11.1-13.3) 10/26/23 06:48 INR 1.1 (0.9-1.1) 10/26/23 06:48 APTT 31.5 SEC (26.0-36.4) 10/26/23 06:48 D-Dimer High Sensitivty 151 NG/ML 10/26/23 06:48 Sodium 142 mmol/L (135-145) 10/27/23 05:58 Potassium 3.5 mmol/L (3.3-5.1) 10/27/23 05:58 Chloride 109 mmol/L (96-108) H 10/27/23 05:58 Carbon Dioxide 24 mmol/L (22-29) 10/27/23 05:58 Anion Gap 13 (12-20) 10/27/23 05:58 BUN 15 mg/dL (9-16) 10/27/23 05:58 Creatinine 0.89 mg/dL (0.5-1.4) 10/27/23 05:58 Estim Creat Clear Calc 105.0 10/27/23 05:58 Estimated GFR > 60 10/27/23 05:58 Random Glucose 109 mg/dL (60-115) 10/27/23 05:58 Calcium 9.0 mg/dL (8.4-10.2) 10/27/23 05:58 Magnesium 2.0 mg/dL (1.6-2.6) 10/26/23 06:48 Total Bilirubin 0.4 mg/dL (0.0-1.0) 10/26/23 06:48 AST 27 U/L (5-37) 10/26/23 06:48 ALT 24 U/L (0-40) 10/26/23 06:48 Alkaline Phosphatase 81 U/L (39-117) 10/26/23 06:48 Troponin I High Sens 181.0 ng/L (<3.5-35.0) H* 10/26/23 07:50 B-Natriuretic Peptide 179 pg/mL (<100) H 10/26/23 06:48 Total Protein 7.5 g/dL (6.5-8.0) 10/26/23 06:48 Albumin 4.1 g/dL (3.5-5.0) 10/26/23 06:48 Urine Color Yellow 10/26/23 07:12 Urine Appearance Clear 10/26/23 07:12 Urine pH 7.5 (5.0-9.0) 10/26/23 07:12 Ur Specific [place] <= 1.005 (1.005-1.025) 10/26/23 07:12 Urine Protein Negative mg/dL (Neg-Trace) 10/26/23 07:12 Urine Glucose (UA) Negative mg/dL (Negative) 10/26/23 07:12 Urine Ketones Negative mg/dL (Negative) 10/26/23 07:12 Urine Blood Negative (Negative) 10/26/23 07:12 Urine Nitrite Negative (Negative) 10/26/23 07:12 Ur Leukocyte Esterase Negative (Negative) 10/26/23 07:12 Urine Opiates Screen Not Detected (Not Detect) 10/26/23 07:52 Urine Fentanyl Screen Not Detected (Not Detect) 10/26/23 07:52 Ur Barbiturates Screen Not Detected (Not Detect) 10/26/23 07:52 Ur Phencyclidine Scrn Not Detected (Not Detect) 10/26/23 07:52 Ur Amphetamines Screen Not Detected (Not Detect) 10/26/23 07:52 U Benzodiazepines Scrn Not Detected (Not Detect) 10/26/23 07:52 Urine Cocaine Screen Not Detected (Not Detect) 10/26/23 07:52 U Marijuana (THC) Screen POSITIVE (Not Detect) H 10/26/23 07:52 Influenza Type A (PCR) NEGATIVE (Negative) 10/26/23 06:48 Influenza Type B (PCR) NEGATIVE (Negative) 10/26/23 06:48 RSV RNA Qual (PCR) NEGATIVE (Negative) 10/26/23 06:48 SARS-CoV-2 RNA (RT-PCR) NEGATIVE (Negative) 10/26/23 06:48 Impressions Chest X-Ray 10/26/23 07:27 IMPRESSION: Scattered increased markings, question atelectasis, pneumonia not excluded. TTE 10/26/23 - The left ventricular systolic function is moderately decreased. The visually estimated ejection fraction is between 35-40%. - Moderately increased right ventricular cavity size. - The left atrium is moderately dilated. - No obvious valvular pathology seen on this study. Discharge Plan Discharge Patient Disposition: Home, Self-Care Discharge Diagnosis: cardiomyopathy, heart failure with reduced ejection fraction due to uncontrolled hypertension Referrals: [facility] [Provider Group] - 1 Week [facility] [Provider Group] - 1 Week Physician,Raymundo J [Primary Care Provider] - 1 Week Discharge Medications: New carvedilol 12.5 mg Tablet 12.5 mg PO BID Qty: 120 0RF Protocol: Hold for SBP/HR < HOLD for SBP < : 90 HOLD for HR < : 60 amlodipine 10 mg Tablet 10 mg PO DAILY Qty: 60 0RF Protocol: Hold for SBP< HOLD for SBP < : 90 lisinopril 10 mg Tablet 10 mg PO DAILY Qty: 60 0RF Protocol: Hold for SBP< HOLD for SBP < : 90 aspirin 81 mg Tablet,Chewable 81 mg PO DAILY Qty: 30 0RF Discharge Orders: Discharge Order (Routine); Ordered 10/27/23 Ordered By: Nadege Palomares Diet: Low salt diet Activity on Discharge: As tolerated Stand Alone Forms: Patient Portal Discharge page Other Ambulatory Orders: Basic Metabolic Panel (Routine) Timeframe: 1 Week Facility: [facility] - Location: Laboratory Ordered By: Nadege Palomares Care Plan Goals: cardiac health Health Concerns: cardiomyopathy, heart failure with reduced ejection fraction due to uncontrolled hypertension Plan of Treatment: aspirin 81 mg daily amlodipine 10 mg daily lisinopril 10 mg daily carvedilol 12.5 mg twice daily establish primary care as soon as possible follow up with Cardiology at [facility] in 2 weeks repeat labs [BMP] in 1 week Return to the hospital if you experience recurrent or worsening symptoms. Assessment: See Discharge Summary.
[2023-10-27 11:39] LABS: Estimated Average Glucose 120 mg/dL; Hemoglobin A1c % 5.8 % (<6.0)
--- NOTE | 2023-10-27 16:00 | MHC.CM.PN ---
Pt medically cleared for D/C home, self-care, pts transported him home.
== END 2023-10-27 11:56 | disposition home or self-care (01) ==
LOC: HO.ED 08:45 → HO.EDOVER 10:07 → HO.IMC 20:54
PROVIDERS: Physician Assistant Medical; Admitting Provider Family Medicine; Emergency Provider Emergency Medicine; Visit Provider Family Medicine
DX: I42.9 Cardiomyopathy, unspecified (principal); I11.0 Hypertensive heart disease with heart failure; I50.20 Unspecified systolic (congestive) heart failure; R06.02 Shortness of breath; R79.89 Other specified abnormal findings of blood chemistry; I16.0 Hypertensive urgency; R91.8 Other nonspecific abnormal finding of lung field; Z20.822 Contact with and (suspected) exposure to COVID-19; Z20.828 Contact with and (suspected) exposure to other viral communicable diseases
CPT/HCPCS: 0241U; 36415; 71046; 80048; 80053; 80307; 81003; 83036; 83735; 83880; 84484; 85025; 85379; 85610; 85730; 93005; 93306; 99222; 99285; J1650; Q9957

== ENCOUNTER → 2023-10-26 10:02 | Outpatient (BNV) | payer SELFPAY | PROVIDERS: Admitting Provider Family Medicine; Emergency Provider Emergency Medicine; Visit Provider Family Medicine | DX: I16.1 Hypertensive emergency (principal) | CPT/HCPCS: 99222; 99239 ==

== ENCOUNTER → 2023-10-26 10:02 | Outpatient (BNV) | payer SELFPAY | PROVIDERS: Admitting Provider Family Medicine; Emergency Provider Emergency Medicine; Visit Provider Internal Medicine | DX: I16.1 Hypertensive emergency (principal); I21.4 Non-ST elevation (NSTEMI) myocardial infarction; I45.81 Long QT syndrome | CPT/HCPCS: 93010; 93306; 99223; 99233 ==

== ENCOUNTER 2023-12-03 20:18 | Emergency (ER) | payer SELFPAY ==
[2023-12-03 20:25] VITALS: BP 162/86; PULSE 55; RESP 18; TEMP 36; O2SAT 100; BMI 28.1
--- NOTE | 2023-12-03 20:25 | ED.GENADULT ---
HPI - General Adult General Chief complaint: Allergic Reaction Stated complaint: facial swelling ?spider bite Time Seen by Provider: 12/03/23 20:42 Source: patient, RN notes reviewed and old records reviewed Mode of arrival: ambulatory Limitations: no limitations History of Present Illness HPI narrative: 53-year-old male past medical history significant for hypertension, cardiomyopathy presents for evaluation of upper lip swelling. He reports that relatively recently he was started on lisinopril 10 mg Per his med reconciliation he filled this medication a little over 1 month ago He denies any difficulty breathing or swelling His symptoms started around 10:00 a.m. this morning after taking his morning meds He reports around noon he took Benadryl 50 mg orally He repeated Benadryl 50 mg orally around 6:00 p.m. Denies any history of similar symptoms Related Data Previous Rx's Medication Instructions Recorded amlodipine 10 mg tablet 10 mg PO DAILY #60 tabs 10/27/23 aspirin 81 mg chewable tablet 81 mg PO DAILY #30 tabs 10/27/23 carvedilol 12.5 mg tablet 12.5 mg PO BID #120 tabs 10/27/23 lisinopril 10 mg tablet 10 mg PO DAILY #60 tabs 10/27/23 epinephrine 0.3 mg/0.3 mL 0.3 mg (0.3 mL) IM Q4H PRN 12/03/23 injection, auto-injector (EpiPen anaphylaxis #2 ea 2-Raymon) prednisone 20 mg tablet 40 mg (2 x 20 mg) PO DAILY #10 tabs 12/03/23 Allergies Allergy/AdvReac Type Severity Reaction Status Date / Time No Known Allergies Allergy Verified 12/03/23 20:25 [No Known Allergies*] Review of Systems Constitutional: Constitutional: Denies chills and Denies fever(s) ENT: Denies throat swelling and Denies tongue swelling Comments: Reports upper lip swelling Cardiovascular: Cardiovascular: Denies chest pain and Denies dyspnea Respiratory: Respiratory: Denies dyspnea Musculoskeletal: Musculoskeletal: Denies back pain Allergic/Immunologic: Allergic/Immunologic: Denies throat swelling and Denies tongue swelling PMFSH Past Medical History Onset Date is defined in the Problem List Problems that require an onset date and time if occurred within 24 hrs of arrival to the ED Aortic Dissection and Rupture; Neurologic impairment; Cardiopulmonary Arrest; Endotracheal Intubation; Insertion or Replacement of Mechanical Circulatory Assist Device Medical History (Updated 12/03/23 @ 23:09 by Kenyon Valladares) NSTEMI (non-ST elevated myocardial infarction) No pertinent past medical history Surgical History No pertinent past surgical history Family History Family History Mother Kidney problem Emphysema lung Social History Social History Household Members: Family and Children Household Members Other:: 1 daughter, Housing: Apartment Do you presently have visiting nurse or other home services: No Alcohol intake: never Patient Tobacco Use Status: Former Tobacco user Quit Date: 25 years ago Tobacco use type: Cigarette Cigarette Packs Per Day: 2 Cigarettes Per Day: 40.0 Smoked in Last 30 Days: No Use of substances other than those prescribed or required for medical reasons: Yes Substance Use Type: Marijuana Substance Use Frequency: Daily Last Used Substance: Hours (ago) Advance Directives: No Advance Directives Information Provided: No service: No Physical Exam ED Vital Signs: Vital Signs - 24 hr 12/03/23 20:25 12/03/23 20:39 12/03/23 23:10 Temperature 96.8 F 98.0 F 97.9 F Pulse Rate 55 64 55 Respiratory Rate 18 16 16 Blood Pressure 162/86 H 161/89 H 151/85 H Pulse Oximetry 100 100 99 Oxygen Delivery Method Room Air Room Air BMI result Body Mass Index 28.1 Const General: healthy appearing, comfortable, no acute distress, alert and awake Nutritional Appearance: well nourished Orientation/consciousness: patient oriented x3 HENMT Other: Patient has marked edema of the upper lip only. It appears to involve the entire upper lip. There is no evidence of oral, perioral, retropharyngeal edema, no tongue edema Head: Yes normocephalic and Yes atraumatic Throat: Yes posterior oropharynx normal Eyes Eyelids: Yes eyelids normal Conjunctivae: conjunctivae normal Sclerae: sclerae normal Corneas: corneas normal Pupils: Equal, round and reactive pupils present EOM: EOMs intact bilaterally Neck Neck: Yes full ROM Resp Effort & Inspection: normal respiratory effort, able to speak in complete sentences, not labored and no stridor GI Inspection: No distended Palpation (GI): Soft to palpation, not firm, nontender, no guarding and not rigid Skin General skin exam: elasticity normal Neuro General: patient oriented x3 Cranial nerves: Yes Equal, round and reactive pupils present and Yes Bilaterally intact EOM present Cognition (Neuro): normal cognition Extrem Other: Moving all extremities well without any obvious deformities Course Course Course Narrative: RME:?53 yo male with hx of HFrEF, cardiomyopathy, and HTN here with upper lip swelling beginning acutely at 1000 this morning. Takes lisinopril for blood pressure. took benadryl at at 1200 and another dose at 1700 without relief. +upper lip swelling concern for angioedema. Airway patent. No posterior oropharynx edema. +multiple dental caries. Plan for labs, meds, observation Full HPI, ROS and PE to be performed by the primary ED provider. Reevaluation(s) Reevaluation #1: Patient's facial edema is essentially unchanged compared to arrival. Will now given additional dose of Benadryl as it has been 4 hours since his last dose. He remains in no respiratory distress without evidence of airway involvement Time: 21:51 Reevaluation #2: Patient re-evaluated again, there appears to be no change in his upper lip edema. He still has no evidence of respiratory distress, reports that he feels somewhat better Time: 23:02 Reevaluation #3: Patient re-evaluate again, he appears to have very slight improvement in his upper lip edema. He reports feeling less pressure. He continues to deny any shortness of breath. Discussed possible admission for the patient given his upper lip is edematous however does not appear to have any airway involvement. The patient preferred to be discharged home. He will be discharged home with prednisone and EpiPen. He was educated how to use the EpiPen. He reports he has Benadryl at home that he can take 50 mg every 6 hours. Discussed with my attending, Dr Cantu who agrees with plan for discharge Time: 23:55 Medications Administered Discontinued Medications Generic Name Dose Route Start Last Admin Trade Name Freq PRN Reason Stop Dose Admin Diphenhydramine HCl 50 mg 12/03/23 21:51 12/03/23 22:18 Diphenhydramine Hcl 50 Mg/Ml Vial IVPUSH 12/03/23 21:52 50 mg ONCE ONE Administration Famotidine 20 mg 12/03/23 20:47 12/03/23 21:02 Famotidine/Pf 20 Mg/2 Ml Vial IVPUSH 12/03/23 20:48 20 mg ONCE ONE Administration Tranexamic Acid 1,000 mg/ 60 mls @ 360 mls/hr 12/03/23 20:50 12/03/23 21:42 Sodium Chloride IV 12/03/23 20:59 Infused ONCE ONE Infusion Methylprednisolone Sodium Succinate 125 mg 12/03/23 20:47 12/03/23 21:02 Methylprednisolone Sod Succ 125 Mg/2 Ml Vial IVPUSH 12/03/23 20:48 125 mg ONCE ONE Administration Medical Decision Making Medical Decision Making [facility] Narrative: Patient likely has angioedema related to lisinopril. He was encouraged to never take this medication again. On arrival patient was given Solu-Medrol, Pepcid and TXA as he would already taken Benadryl 2 hours prior Differential Diagnosis Differential Diagnoses: The differential diagnosis associated with the presentation includes Angioedema Refugio's angina Anaphylaxis Cellulitis Admission/Observation Consideration of admission/observation: Escalation of care including admission/observation considered Considered admission for facial edema, however there is no airway involvement and the patient would prefer to be discharged home which I feel is appropriate. Lab Data [facility] Lab Attestation statement: I reviewed the patient's lab results. No leukocytosis. The patient has a very slight microcytic anemia which he had previously. No electrolyte abnormalities. Patient's BUN that is above normal, creatinine is normal at 1.11 12/03/23 20:44 12/03/23 20:44 Labs: Lab Results 12/03/23 Range/Units 20:44 WBC 7.8 (4.8-10.8) X10*3/uL RBC 6.04 H (4.60-5.80) X10*6/uL Hgb 13.1 L (14.0-18.0) g/dl Hct 42.1 (42.0-52.0) % MCV 69.7 L (80.0-98.0) fL MCH 21.7 L (27.0-33.0) pg MCHC 31.1 (31.0-36.0) g/dl RDW 16.3 H (11.0-16.0) % Plt Count 175 (160-400) X10*3/uL MPV 9.8 (9.4-12.4) fL Immature Gran % (Auto) 0.1 (0.0-0.4) % Neut % (Auto) 55.6 (45-73) % Lymph % (Auto) 29.9 (20-40) % [place] % (Auto) 7.7 (2-11) % Eos % (Auto) 6.2 H (0-4) % Baso % (Auto) 0.5 (0-2) % Lymph # (Auto) 2.3 (1.2-4.9) X10*3/uL [place] # (Auto) 0.6 (0.1-1.2) X10*3/uL Eos # (Auto) 0.5 H (0.0-0.4) X10*3/uL Baso # (Auto) 0.0 (0.0-0.2) X10*3/uL Abs Immat Gran (auto) 0.01 (0.00-0.03) X10*3/uL Absolute Neuts (auto) 4.3 (2.0-8.3) x10*3/uL Absolute Nucleated RBC 0.000 (0.0-0.012) X10*3/uL Nucleated RBC % (auto) 0.0 (0.0-0.2) /100WBC Sodium 141 (135-145) mmol/L Potassium 3.5 (3.3-5.1) mmol/L Chloride 105 (96-108) mmol/L Carbon Dioxide 28 (22-29) mmol/L Anion Gap 12 (12-20) BUN 20 H (9-16) mg/dL Creatinine 1.11 (0.5-1.4) mg/dL Estim Creat Clear Calc 88.2 Estimated GFR > 60 Random Glucose 131 H (60-115) mg/dL Calcium 9.0 (8.4-10.2) mg/dL Magnesium 2.1 (1.6-2.6) mg/dL Discharge Plan Discharge Clinical Impression: Angioedema Patient Disposition: Home, Self-Care Instructions: Angioedema (ED) Additional Instructions: The reaction called angioedema was most likely caused by the medication lisinopril. You should never take this medication again Take losartan instead to help control your blood pressure Take Benadryl 50 mg every 6 hours until the swelling resolves Take prednisone 40 mg daily for the next 5 days You may stop taking it 24 hours after the symptoms resolve You were prescribed an EpiPen that you should use if you are having any difficulty breathing or swallowing Do not use for swelling only Return for new or worsening symptoms Prescriptions: New prednisone 20 mg tablet 40 mg PO DAILY Qty: 10 0RF epinephrine [EpiPen 2-Raymon] 0.3 mg/0.3 mL auto-injector 0.3 mg IM Q4H PRN (Reason: anaphylaxis) Qty: 2 0RF No Action carvedilol 12.5 mg Tablet 12.5 mg PO BID Qty: 120 0RF Protocol: Hold for SBP/HR < HOLD for SBP < : 90 HOLD for HR < : 60 amlodipine 10 mg Tablet 10 mg PO DAILY Qty: 60 0RF Protocol: Hold for SBP< HOLD for SBP < : 90 lisinopril 10 mg Tablet 10 mg PO DAILY Qty: 60 0RF Protocol: Hold for SBP< HOLD for SBP < : 90 aspirin 81 mg Tablet,Chewable 81 mg PO DAILY Qty: 30 0RF
[2023-12-03 20:39] VITALS: BP 161/89; PULSE 64; RESP 16; TEMP 36.7; O2SAT 100
[2023-12-03 20:47] LABS: MANUAL DIFF FLAG NO
[2023-12-03 20:48] LABS: Basophils Percent Auto 0.5 % (0-2); Eosinophils Absolute Auto 0.5 X10*3/uL (0.0-0.4); Eosinophils Percent Auto 6.2 % (0-4); Hematocrit 42.1 % (42.0-52.0); Hemoglobin 13.1 g/dl (14.0-18.0); Imm Gran Abs Auto 0.01 X10*3/uL (0.00-0.03); Imm Gran Pct Auto 0.1 % (0.0-0.4); Lymphocytes Absolute Auto 2.3 X10*3/uL (1.2-4.9); Lymphocytes Percent Auto 29.9 % (20-40); Mean Corpuscular HGB Conc 31.1 g/dl (31.0-36.0); Mean Corpuscular Hemoglobin 21.7 pg (27.0-33.0); Mean Corpuscular Volume 69.7 fL (80.0-98.0); Mean Platelet Volume 9.8 fL (9.4-12.4); Monocytes Absolute Auto 0.6 X10*3/uL (0.1-1.2); Monocytes Percent Auto 7.7 % (2-11); Neutrophils Absolute Auto 4.3 x10*3/uL (2.0-8.3); Neutrophils Percent Auto 55.6 % (45-73); Platelet Count 175 X10*3/uL (160-400); Red Blood Count 6.04 X10*6/uL (4.60-5.80); Red Cell Distribution Width 16.3 % (11.0-16.0); White Blood Count 7.8 X10*3/uL (4.8-10.8)
[2023-12-03 21:01] LABS: Anion Gap 12 (12-20); Blood Urea Nitrogen 20 mg/dL (9-16); Carbon Dioxide 28 mmol/L (22-29); Chloride 105 mmol/L (96-108); Creatinine Clr Calc Pharmacy 88.2; Estimated Glomerular Filt Rate > 60; Glucose Random 131 mg/dL (60-115); Magnesium 2.1 mg/dL (1.6-2.6); Potassium 3.5 mmol/L (3.3-5.1); Sodium 141 mmol/L (135-145)
[2023-12-03] MEDS: Famotidine/PF 20 MG/2 ML VIAL IVPUSH (21:02)
[2023-12-03] MEDS: methylPREDNISolone Sod Succ 125 MG/2 ML VIAL IVPUSH (21:02)
[2023-12-03] MEDS: Tranexamic Acid 1,000 MG in 0.9 % Sodium Chloride 50 ML 360 MG IV (21:25)
[2023-12-03] MEDS: diphenhydrAMINE HCL 50 MG/ML VIAL IVPUSH (22:18)
[2023-12-03 23:10] VITALS: BP 151/85; PULSE 55; RESP 16; TEMP 36.6; O2SAT 99
[2023-12-04 00:08] VITALS: BP 160/98; PULSE 59; RESP 18; TEMP 36.7; O2SAT 98
== END 2023-12-04 00:09 | disposition home or self-care (01) ==
PROVIDERS: Physician Assistant Medical; Emergency Provider Emergency Medicine
DX: L50.0 Allergic urticaria (principal); Z79.899 Other long term (current) drug therapy
CPT/HCPCS: 36415; 80048; 83735; 85025; 96365; 96375; 99284; J1200; J2930

== ENCOUNTER 2024-05-20 11:13 | Outpatient (REF) | payer SELFPAY ==
[2024-05-20 13:09] LABS: MANUAL DIFF FLAG NO
[2024-05-20 13:18] LABS: Basophils Absolute Auto 0.1 X10*3/uL (0.0-0.2); Eosinophils Absolute Auto 0.4 X10*3/uL (0.0-0.4); Eosinophils Percent Auto 5.6 % (0-4); Hematocrit 40.1 % (42.0-52.0); Hemoglobin 12.6 g/dl (14.0-18.0); Imm Gran Abs Auto 0.02 X10*3/uL (0.00-0.03); Imm Gran Pct Auto 0.3 % (0.0-0.4); Lymphocytes Absolute Auto 2.1 X10*3/uL (1.2-4.9); Lymphocytes Percent Auto 30.1 % (20-40); Mean Corpuscular HGB Conc 31.4 g/dl (31.0-36.0); Mean Corpuscular Hemoglobin 22.5 pg (27.0-33.0); Mean Corpuscular Volume 71.7 fL (80.0-98.0); Mean Platelet Volume 11.1 fL (9.4-12.4); Monocytes Absolute Auto 0.6 X10*3/uL (0.1-1.2); Monocytes Percent Auto 8.2 % (2-11); Neutrophils Absolute Auto 3.8 x10*3/uL (2.0-8.3); Neutrophils Percent Auto 54.8 % (45-73); Platelet Count 220 X10*3/uL (160-400); Red Blood Count 5.59 X10*6/uL (4.60-5.80); Red Cell Distribution Width 17.2 % (11.0-16.0); White Blood Count 6.8 X10*3/uL (4.8-10.8)
[2024-05-20 13:34] LABS: Estimated Average Glucose 123 mg/dL; Hemoglobin A1c % 5.9 % (<6.0)
[2024-05-20 13:50] LABS: Alanine Aminotransferase 11 U/L (0-40); Albumin Level 4.2 g/dL (3.5-5.0); Alkaline Phosphatase 84 U/L (39-117); Anion Gap 13 (12-20); Aspartate Amino Transferase 18 U/L (5-37); Bilirubin Total 0.6 mg/dL (0.0-1.0); Blood Urea Nitrogen 16 mg/dL (9-16); Calcium 9.5 mg/dL (8.4-10.2); Carbon Dioxide 28 mmol/L (22-29); Chloride 105 mmol/L (96-108); Cholesterol 171 mg/dL (<200); Estimated Glomerular Filt Rate > 60; Glucose Random 119 mg/dL (60-115); HDL Cholesterol 38 mg/dL (>40); LDL Cholesterol Calculated 115 mg/dL (<100); Potassium 3.8 mmol/L (3.3-5.1); Sodium 142 mmol/L (135-145); Total Protein 7.7 g/dL (6.5-8.0); Triglycerides 92 mg/dL (<150)
[2024-05-20 14:06] LABS: TSH reflex Free T4 1.04 uIU/mL (0.32-4.0)
[2024-05-20 14:51] LABS: Reflex LDLD? No
[2024-05-20 15:07] LABS: HIV AB/AG Nonreactive (Nonreactive); HIV Num 1 0.04 S/CO (0.00-0.99)
[2024-05-23 16:04] LABS: HCV Log PCR <1.18 NOT DETECTED Log IU/mL (NOT DETECTED); HepC Viral Load <15 NOT DETECTED IU/mL (NOT DETECTED)
== END 2024-05-20 11:14 | disposition home or self-care (01) ==
LOC: HO.HHCL 11:13
PROVIDERS: Visit Provider Internal Medicine
DX: Z00.00 Encounter for general adult medical examination without abnormal findings (principal)
CPT/HCPCS: 36415; 80053; 80061; 83036; 84443; 85025; 87389; 87522

== ENCOUNTER 2024-09-09 14:29 | Outpatient (AMB) | payer OTHER, SELFPAY ==
[2024-09-09 14:31] VITALS: BP 128/70; PULSE 55; BMI 26.9
--- NOTE | 2024-09-09 14:31 | A.OFFVIS_ITS ---
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 Last year, he was seen in the hospital consultation. He was admitted with a diagnosis of hypertensive emergency and concurrently had NSTEMI. Meds were optimized at that time. It was felt the troponin elevation was possibly from high blood pressure. Echocardiogram had cardiomyopathy. After discharge, he has not been seen in follow-up till today. He states he is generally doing fine. He does not have any chest pain or any cardiac symptoms. He states he is now much more compliant with medications. [facility] Medical History (Updated 09/09/24 @ 15:35 by Paresh Reddy MD) NSTEMI (non-ST elevated myocardial infarction) Essential hypertension No pertinent past medical history Surgical History No pertinent past surgical history Family History Mother Kidney problem Emphysema lung Social History (Updated 09/09/24 @ 14:42 by Criselda Moore) Household Members: Family and Children Household Members Other:: 1 daughter, Housing: Apartment Do you presently have visiting nurse or other home services: No Alcohol intake: current Alcohol intake frequency: holidays/special occasions only Patient Tobacco Use Status: Former Tobacco user Tobacco use type: Cigarette Cigarette Packs Per Day: 2 Cigarettes Per Day: 40.0 Substance Use Type: Marijuana service: No Review of Systems Const Denies weakness ENT Denies dizziness Card Reports chest pain, Denies chest pain with activity, Denies syncope, Denies rapid heart rate, Denies pedal edema, Denies edema, Denies leg edema, Denies lightheadedness, Denies palpitations, Denies dyspnea, Denies dyspnea on exertion and Denies orthopnea Resp Denies cough, Denies dyspnea and Denies dyspnea on exertion GI Denies hematochezia and Denies change in stool character Musc Denies abnormal gait, Denies muscle cramps, Denies muscle weakness, Denies numbness, Denies radiating pain into limb and Denies tingling Neuro Denies abnormal gait, Denies dizziness, Denies syncope, Denies numbness, Denies tingling and Denies weakness Endo Denies palpitations Physical Exam Vital Signs: Last Vital Signs Pulse 55 09/09/24 14:31 BP 128/70 09/09/24 14:31 BMI result Body Mass Index 26.9 Const General: comfortable and no acute distress Orientation/consciousness: patient oriented x3 HEENT Other: Unremarkable Head: Yes normal to inspection Neck Neck: Yes normal visual inspection Chest Chest palpation & inspection: normal inspection of the chest Resp Auscultation: clear to auscultation bilaterally Cardio Palpation: normal PMI Heart sounds: S1 normal heart sound present, S2 normal heart sound present, no gallops, no murmurs and no rubs GI Palpation (GI): Soft to palpation Back/Spine/Pelvis Other: unremarkable Skin General skin exam: no rashes or lesions noted Neuro General: patient oriented x3 Extrem General: Yes normal to inspection Psych Mental Status: mental status grossly normal Office Procedures EKG Details: EKG with underlying sinus bradycardia at 55/Min; downsloping STs with T inversion in inferior and anterolateral leads; [place] [id number], Complete Assessment & Plan Assessment & Plan (1) Cardiomyopathy: Code(s): I42.9 - Cardiomyopathy, unspecified Category: Medical (2) NSTEMI (non-ST elevated myocardial infarction): Code(s): I21.4 - Non-ST elevation (NSTEMI) myocardial infarction Category: Medical (3) Essential hypertension: Code(s): I10 - Essential (primary) hypertension Category: Medical Plan Last year, echocardiogram had shown LVEF of 35-40%. Now that he is on blood pressure medications, we will reassess cardiac function with an echocardiogram. With regard to elevated troponin levels/NSTEMI, suspected to be from uncontrolled blood pressures. We will check a stress test to assess for any perfusion abnormalities. Otherwise, continue current regimen. We will see him in follow-up after the testing. Orders: Orders CA echo transthoracic complete Today I42.9 - Cardiomyopathy, unspecified CA stress test Today I42.9 - Cardiomyopathy, unspecified, R07.2 - Precordial pain NM cardiolite stress test Today I42.9 - Cardiomyopathy, unspecified, R07.2 - Precordial pain Medications: Discontinued lisinopril Discontinued Reason: Patient no longer taking 10 mg See Protocol PO DAILY 60 tabs 0RF Coding Level of Care Code Est Pt Level 4 (60531) Diagnoses Cardiomyopathy I42.9 NSTEMI (non-ST elevated myocardial infarction) I21.4 Essential hypertension I10 CPT Codes EKG - CPT: 19798-[id number], Complete ([id number])
== END 2024-09-09 14:54 | disposition home or self-care (01) ==
LOC: HO.HCS 14:29
PROVIDERS: Visit Provider Internal Medicine
DX: I42.9 Cardiomyopathy, unspecified (principal); I21.4 Non-ST elevation (NSTEMI) myocardial infarction; I10 Essential (primary) hypertension
CPT/HCPCS: 93010; 99214

== ENCOUNTER → 2024-09-09 14:29 | Outpatient (BNVA) | payer OTHER, SELFPAY | PROVIDERS: Visit Provider Internal Medicine | DX: I10 Essential (primary) hypertension (principal); R07.2 Precordial pain; I42.9 Cardiomyopathy, unspecified; I21.4 Non-ST elevation (NSTEMI) myocardial infarction; Z87.891 Personal history of nicotine dependence | CPT/HCPCS: 93005; 99212 ==